=== PATIENT | female | born 1945 | race Caucasian/White ===

== ENCOUNTER 2020-09-30 00:20 | Emergency (ER) | payer MEDICARE ==
[~2020-09-30] VITALS: Ht 162.6 cm; Wt 53.0 kg
[2020-09-30 00:23] VITALS: BP 155/94
== END 2020-09-30 00:55 ==
LOC: ER 00:21
DX: S00.31XA Abrasion of nose, initial encounter (principal); S00.81XA Abrasion of other part of head, initial encounter; S09.90XA Unspecified injury of head, initial encounter; R11.10 Vomiting, unspecified; F10.129 Alcohol abuse with intoxication, unspecified; Z88.8 Allergy status to other drugs, medicaments and biological substances; V49.69XA Unspecified car occupant injured in collision with other motor vehicles in traffic accident, initial encounter; Y93.89 Activity, other specified; Y92.89 Other specified places as the place of occurrence of the external cause; Y99.8 Other external cause status; Y90.9 Presence of alcohol in blood, level not specified
CPT/HCPCS: 99283

== ENCOUNTER 2025-01-24 10:16 | Emergency (ER) | payer MEDICARE, OTHER ==
[~2025-01-24] VITALS: Ht 165.1 cm; Wt 57.0 kg
[2025-01-24 10:57] VITALS: PULSE 76; TEMP 97.5
--- NOTE | 2025-01-24 11:52 | Physician Documentation ---
History of Present Illness ~ Chief Complaint: Back Pain Stated Complaint: LOWER BACK PAIN Time Seen by MD: 10:31 OK to notify your PCP?: Yes Primary Medical Doctor: Barak Source: patient Mode of Arrival: EMS Exam Limitations: no limitations HPI 79-year-old female with chief complaint lower back pain that started a week ago. She states she has a history of lower back pain that goes back to about a year ago when she was diagnosed with compression fractures of her lumbar spine. She states that she was referred for injections but never ended up following through with any injections or procedural treatment has just been doing physical therapy. She states that the pain is worse with ambulation which is why she took an ambulance here today. She did take Windsor earlier this week for her pain but has not taken anything today. She currently is dealing with a lot of constipation which she states she has chronically but after taking the Windsor it worsened. Her last colonoscopy was within the last six months. Patient denies pain in her legs, any recent fall, vomiting, urinary symptoms, fever, chills. Patient does have osteoporosis and states that she has not been on any treatment for this but the plan is for her to start Prolia in February with her PCP. Medication Reconciliation Allergies: Coded Allergies: codeine (Verified Allergy, Unknown, 09/30/20) Past Medical History Past Medical History: No Pertinent History Past Surgical History: no surgical history Alcohol Use: Heavy Drug Use: none Lives In: Home Review of Systems All Other Systems at this time: Reviewed and Negative Physical Exam Physical Exam Vital Signs: Temperature: 97.5, Source: Oral, Heart Rate: 76, Respiratory Rate: 14, BP: 133/75, Pulse Oximetry: 95, Weight: 57.000 Physical Exam GENERAL: Alert, no acute distress. HEENT: NCAT, EOMI, PERRL, normal oropharynx, moist oral mucosa. NECK: Supple, trachea midline. CARDIAC: Regular rate and rhythm, no murmurs, rubs, or gallops. Equal distal pulses. No lower extremity edema, cap refill less than 2 seconds. RESPIRATORY: Equal breath sounds, clear to auscultation bilaterally, no respiratory distress. GASTROINTESTINAL: Non distended, soft, mild generalized ttp, No guarding or rebound. MUSCULOSKELETAL: Normal range of motion, nontender, no swelling. I observed patient get up from a supine position lying on the gurney in ambulate to the bathroom as well as ambulate back from the bathroom and lay back down on the gurney without any sign of pain or needing assistance. NEUROLOGICAL: Awake, alert, and oriented x 3. SKIN: Warm/dry, no pallor, no rash. PSYCH: Alert and appropriate. Affect congruent with mood. Speech is clear. Good eye contact. Progress Progress Note FITTED WITH LSO BRACE Results/Orders Reviewed/noted all lab results: Yes Results/Orders Orders - IMAN MOREL Ct Lumbar Spine (01/24/25 11:12) Completed Orders - IMAN MOREL Ct Lumbar Spine (01/24/25 11:12) Vital Signs 01/24/25 01/24/25 01/24/25 10:18 10:28 10:57 Temp 97.5 97.5 Pulse 78 76 Resp 14 14 B/P (MAP) 170/89 133/75 (94) Pulse Ox 96 95 Medical Decision Making Additional information obtaine: N/A Findings n/a Differential Dx:Considerations: AAA, Aortic dissection, , Appendicitis, Bowel obstruction, Cholelithiasis, Cholangitis, Fracture, Hepatitis, HNP, Musculoskeletal pain, Pancreatitis, Strain, Urinary obstruction, Urolithiasis, Ovarian torsion, Renal infarction, Urinary tract infection Departure Time of Disposition: 12:34 Disposition: 01 HOME / SELF CARE / HOMELESS Impression: Primary Impression: Acute on chronic back pain Additional Impressions: Osteoporosis Qualified Codes: M81.0 - Age-related osteoporosis without current pathological fracture History of compression fracture of spine Constipation Qualified Codes: K59.00 - Constipation, unspecified Condition: Stable Discharge Instructions: Spinal Compression Fracture Additional Instructions: YOU HAVE EXTENSIVE AMOUNT OF COMPRESSION FRACTURES OF SPINE WITHOUT HAVING INJURY AND THIS IS DUE TO YOUR OSTEOPOROSIS WHICH REALLY NEEDS TO GET TREATED OTHERWISE THIS WILL CONTINUE TO OCCUR I RECOMMEND YOU F/U WITH YOUR PCP ABOUT GETTING AN MRI TO FURTHER EVALUATE THE COMPRESSION FRACTURES TO SEE IF THEY ARE AMENDABLE TO VERTEBROPLASTY I WILL SEND YOU WITH PAIN MEDICATION BUT WITH YOUR CONSTIPATION I AM VERY CONCERNED ABOUT THIS CONSTIPATION GETTING WORSE AND YOU NEED TO TAKE MIRALAX OR MILK OF MAG WITH THE [place]CO AND I WOULD RECOMMEND THAT YOU WAIT TO START THE MEDICATION UNTIL YOU HAVE A BOWEL MOVEMENT SINCE YOU HAVE NOT HAD A BOWEL MOVEMENT IN SEVERAL DAYS CLINICAL INFORMATION: Lower back pain. TECHNIQUE: Axial CT images of the lumbar spine were obtained without IV contrast. Coronal and sagittal reformatted images were obtained, reviewed, and stored. One or more of the following dose reduction techniques were used: Automated exposure control. Adjustment of mA and/or kV according to patient size. CTDIvol = 9.38 mGy DLP = 287.05 mGy-cm COMPARISON: None FINDINGS: Mild grade 1 anterolisthesis of L4 on L5. There are compression fractures of the T12, L1, L2, L3, and L4 vertebral bodies. The L2, L3, and L4 compression fra ctures appear chronic. The T12 and L1 compression fractures are of indeterminate age, with possible acute or subacute components. There is up to 10% loss of height at T12, 50% loss of height at L1, 50% loss of height at L2, 40% loss of height at L3, and 10% loss of height at L4. Minimal retropulsion of the posterior cortex of L1. Posterior elements are intact. Bsnt-zl-luribjno fatty atrophy of the paraspinal musculature of the lumbosacral spine. Lumbar disc levels: L1-L2: No significant disc/facet abnormality. No significant spinal canal or neural foraminal stenosis. L2-L3: Mild disc bulge without significant spinal canal stenosis. Facet hypertrophy and slight encroachment of the left neural foramen by the disc bulge contributes to inpz-fz-gzgcknft left neural foraminal stenosis. L3-L4: Minimal disc bulge. No significant spinal canal stenosis. Facet hypertrophy with bqee-mp-xpgozwqj bilateral neural foraminal stenoses. L4-L5: Moderate to severe disc space narrowing. No significant spinal canal st enosis. Facet hypertrophy with moderate bilateral neural foraminal stenoses. L5-S1: Moderate to severe disc space narrowing. Vacuum disc disease also noted. No significant spinal canal stenosis. Facet hypertrophy with moderate bilateral neural foraminal stenoses. IMPRESSION: 1. Compression fractures in the T12, L1, L2, L3, and L4 vertebral bodies as described above. Can not exclude acute or subacute components of the T12 and L1 fractures. Correlate with clinical findings. If clinically indicated, MRI could be obtained to further characterize the chronicity of the compression fractures. 2. Mild grade 1 anterolisthesis of L4 on L5. 3. Degenerative disc disease and facet disease in the lumbar spine as detailed above. Referrals: NO PRIMARY CARE PROVIDER (PCP) Prescriptions Lorazepam (Ativan) 1 Mg Tablet 1 TAB PO QHS PRN for anxiety for 5 Days, #5 TAB 0 Refills DX: INSOMNIA, ANXIETY, G47.0 Prov: IMAN MOREL 01/24/25 Education Educated: Patient Educated regarding: diagnosis, treatment, need for follow up Signature Scribe Signature: x Attestation: IMAN Clayton Jan 24, 2025 11:52
--- NOTE | 2025-01-24 12:27 | RADIOLOGY REPORT ---
CLINICAL INFORMATION: Lower back pain. TECHNIQUE: Axial CT images of the lumbar spine were obtained without IV contrast. Coronal and sagittal reformatted images were obtained, reviewed, and stored. One or more of the following dose reduction techniques were used: Automated exposure control. Adjustment of mA and/or kV according to patient size. CTDIvol = 9.38 mGy DLP = 287.05 mGy-cm COMPARISON: None FINDINGS: Mild grade 1 anterolisthesis of L4 on L5. There are compression fractures of the T12, L1, L2, L3, and L4 vertebral bodies. The L2, L3, and L4 compression fractures appear chronic. The T12 and L1 compression fractures are of indeterminate age, with possible acute or subacute components. There is up to 10% loss of height at T12, 50% loss of height at L1, 50% loss of height at L2, 40% loss of height at L3, and 10% loss of height at L4. Minimal retropulsion of the posterior cortex of L1. Posterior elements are intact. Mksa-ri-ekleutwn fatty atrophy of the paraspinal musculature of the lumbosacral spine. Lumbar disc levels: L1-L2: No significant disc/facet abnormality. No significant spinal canal or neural foraminal stenosis. L2-L3: Mild disc bulge without significant spinal canal stenosis. Facet hypertrophy and slight encroachment of the left neural foramen by the disc bulge contributes to prya-no-dzidfpyg left neural foraminal stenosis. L3-L4: Minimal disc bulge. No significant spinal canal stenosis. Facet hypertrophy with [id number]-db-pmxiymvg bilateral neural foraminal stenoses. L4-L5: Moderate to severe disc space narrowing. No significant spinal canal stenosis. Facet hypertrophy with moderate bilateral neural foraminal stenoses. L5-S1: Moderate to severe disc space narrowing. Vacuum disc disease also noted. No significant spinal canal stenosis. Facet hypertrophy with moderate bilateral neural foraminal stenoses. IMPRESSION: 1. Compression fractures in the T12, L1, L2, L3, and L4 vertebral bodies as described above. Can not exclude acute or subacute components of the T12 and L1 fractures. Correlate with clinical findings. If clinically indicated, MRI could be obtained to further characterize the chronicity of the compression fractures. 2. Mild grade 1 anterolisthesis of L4 on L5. 3. Degenerative disc disease and facet disease in the lumbar spine as detailed above.
[2025-01-24] MEDS ORDERED: LORA-269 PO (12:43)
[2025-01-24 12:53] VITALS: RESP 18
[2025-01-24 13:26] VITALS: BP 182/93; O2SAT 92
== END 2025-01-24 13:28 | disposition home or self-care (01) ==
LOC: ER 10:16
DX: M54.50 Low back pain, unspecified (principal); M81.0 Age-related osteoporosis without current pathological fracture; Z88.5 Allergy status to narcotic agent
CPT/HCPCS: 72131; 99284